=== PATIENT | female | born 1980 | race Caucasian/White ===

== ENCOUNTER 2023-01-16 11:02 | Day surgery (SDC) | payer BC ==
[2023-01-12 13:20] VITALS: BMI 45.4
[2023-01-16] MEDS ORDERED: PROPOFOL 20 ML ONE (14:31)
== END 2023-01-16 15:25 | disposition home or self-care (01) ==
LOC: MERGE 11:02 → CSHSDC 11:02
PROVIDERS: ATTEND Surgery
PROC: 0DB68ZX Excision of Stomach, Via Natural or Artificial Opening Endoscopic, Diagnostic (ICD-10-PCS; principal; 2023-01-16)
DX: K29.70 Gastritis, unspecified, without bleeding (principal); K21.9 Gastro-esophageal reflux disease without esophagitis; K57.92 Diverticulitis of intestine, part unspecified, without perforation or abscess without bleeding; E55.9 Vitamin D deficiency, unspecified; Z88.2 Allergy status to sulfonamides; Z91.018 Allergy to other foods; E66.01 Morbid (severe) obesity due to excess calories; Z68.41 Body mass index [BMI] 40.0-44.9, adult
CPT/HCPCS: 88305; J2704

== ENCOUNTER 2024-04-04 15:19 | Outpatient (CLI) | payer BC | END 2024-04-04 15:20 | disposition home or self-care (01) | LOC: CSHMAMMO 15:19 | PROVIDERS: ATTEND Physician Assistant | DX: Z12.31 Encounter for screening mammogram for malignant neoplasm of breast (principal) | CPT/HCPCS: 77063; 77067 ==

== ENCOUNTER 2025-06-01 15:17 | Outpatient (CLI) | payer BC | END 2025-06-01 15:18 | disposition home or self-care (01) | LOC: CSHMAMMO 15:17 | PROVIDERS: ATTEND Physician Assistant | DX: Z12.31 Encounter for screening mammogram for malignant neoplasm of breast (principal) | CPT/HCPCS: 77063; 77067 ==

== ENCOUNTER 2025-10-05 22:43 | Observation (INO) | payer BC ==
[2025-10-06 02:27] VITALS: BMI 31.3
[2025-10-06] MEDS ORDERED: Ondansetron PF 4 MG/2 ML Vial IVP PRN (04:21)
[2025-10-06 08:39] LABS: #Basophils Less than 0.03 10x3/uL (0.0-0.2); #Eosinophils 0.13 10x3/uL (0.0-0.5); #Monocytes 1.09 10x3/uL (0.0-1.1); #Neutrophils 14.11 10x3/uL (1.5-8.4); %Basophils 0.1 % (0.0-2.0); %Eosinophils 0.8 % (0.0-6.0); %Lymphocytes 7.1 % (18.0-47.0); %Monocytes 6.6 % (0.0-10.0); %Neutrophils 85.0 % (40.0-75.0); Hematocrit 29.3 % (34.9-44.5); Hemoglobin 9.3 g/dL (12.0-15.5); Mean Corpuscular Hemoglobin 28.1 pg (27.0-33.0); Mean Corpuscular Volume 88.5 fL (81.6-98.3); Platelet Count 213 10x3/uL (150-450); Red Blood Cell (RBC) Count 3.31 10x6/uL (3.90-5.03); White Blood Cell (WBC) Count 16.59 10x3/uL (3.5-10.5)
[2025-10-06] MEDS: HYDROcodone/Acetaminophen 5/325 mg Tablet PO PRN (11:40)
[2025-10-07 03:53] LABS: #Basophils Less than 0.03 10x3/uL (0.0-0.2); #Eosinophils 0.26 10x3/uL (0.0-0.5); #Monocytes 0.76 10x3/uL (0.0-1.1); #Neutrophils 8.22 10x3/uL (1.5-8.4); %Basophils 0.2 % (0.0-2.0); %Eosinophils 2.3 % (0.0-6.0); %Lymphocytes 17.7 % (18.0-47.0); %Monocytes 6.7 % (0.0-10.0); %Neutrophils 72.7 % (40.0-75.0); Hematocrit 26.7 % (34.9-44.5); Hemoglobin 8.7 g/dL (12.0-15.5); Mean Corpuscular Hemoglobin 28.6 pg (27.0-33.0); Mean Corpuscular Volume 87.8 fL (81.6-98.3); Platelet Count 216 10x3/uL (150-450); Red Blood Cell (RBC) Count 3.04 10x6/uL (3.90-5.03); White Blood Cell (WBC) Count 11.31 10x3/uL (3.5-10.5)
[2025-10-07 07:32] VITALS: BP 119/68; TEMP 97.9
[2025-10-07] MEDS: Ibuprofen 800 MG TAB PO PRN (07:38)
== END 2025-10-07 08:25 | disposition home or self-care (01) ==
LOC: CSHERS 22:43 → CSHPED 10-06 01:31
PROVIDERS: ADMIT Obstetrics & Gynecology; ATTEND Obstetrics & Gynecology
DX: S30.23XA Contusion of vagina and vulva, initial encounter (principal); I10 Essential (primary) hypertension; E66.9 Obesity, unspecified; Z68.31 Body mass index [BMI] 31.0-31.9, adult; Z98.84 Bariatric surgery status; Z90.710 Acquired absence of both cervix and uterus; Z90.49 Acquired absence of other specified parts of digestive tract; Z88.2 Allergy status to sulfonamides; Z91.0110 Allergy to milk products, unspecified; X58.XXXA Exposure to other specified factors, initial encounter
CPT/HCPCS: 36415; 85025; 96365; 96366; 96375; 96376; 99284; G0378; J2272; J2543; J7120